=== PATIENT | female | born 1955 | race Caucasian/White ===

== ENCOUNTER → 2016-10-01 | Outpatient (CLI) | payer BC ==
[~2016-10-01] MED LIST: (NONE)300 MCG PO; AMLODIPINE BESYL5 MG PO; ASPIRIN81 M1 PO; ATENOLOL50 MG PO; BIOTEN; BIOTIN2500 MCG; CALCIUM + D 6001 TA1 PO; CELEXA20 MG PO; COLON CLENZ PO; FIBER LAXATIVE0.52 G; FLEXERIL10 MG PO; GENESUPP-5001 CAP PO; K-DUR10 MEQ PO; LASIX PO; LISINOPRIL PO; MULTI-VITAMIN1 TAB; NAPROXEN PO; NEURONTIN PO; SYNTHROID75 MCG PO; VICODIN 5/500 T1 TAB PO; VIT B-12 PO
--- NOTE | ~2016-10-01 | MY11 ---
[facility] A Service of [facility] RADIOLOGY TEXT RESULTS PATIENT: RADHA NOVA LOCATION: [facility] : 51 UNIT #: [id number] AGE: [address]: Viktor Hutton MD SEX: F ORDER DR: [id number] [facility] [address] [place], [place] [address] [id number] O MR#: [id number] Acc #: [id number] NAME: RADHA NOVA : 1955 SEX: F STUDY DATE/TIME: 10/01/2016 8:48 UNIT: [facility] ROOM: STUDY DESCRIPTION: MY Mammogram Screening Dig Felipe Attending Physician: Viktor Hutton M.D. Ordering Physician: Viktor Hutton M.D. Primary Care Physician: Viktor Hutton M.D. MEDICAL IMAGING REPORT This report is preliminary unless electronic signature is present EXAM Bilateral Digital Screening Mammogram with CAD INDICATION Breast cancer screening. 61-year-old asymptomatic female who reports a grandmother with breast cancer. COMPARISON September 26, 2015; June 01, 2014; July 18, 2011 and June 29, 2008. FINDINGS The breast tissue is extremely dense, which may lower the sensitivity of mammography. No suspicious findings are seen. IMPRESSION No mammographic evidence of malignancy. Annual screening mammography and clinical breast exam are recommended. A result letter will be sent to the patient. Patients over the age of 40 are entered into a reminder system with target due date for the next mammogram. BIRADS: 1 Negative Dictated by... Gavino Vance M.D. THIS IS AN ELECTRONICALLY VERIFIED REPORT Gavino Vance M.D. at 10/01/2016 1:07 PM GLENN/erin TD: 10/01/2016 12:56 [facility] of [facility] RADIOLOGY TEXT RESULTS PATIENT: RADHA NOVA LOCATION: [facility] : 51 UNIT #: [id number] AGE: [address]: Viktor Hutton MD SEX: F ORDER DR: JOB #: [id number] MEDICAL IMAGING REPORT COPY
== END | disposition home or self-care (01) ==
LOC: CWCC 08:06
DX: Z12.31 Encounter for screening mammogram for malignant neoplasm of breast (principal); Z80.3 Family history of malignant neoplasm of breast
CPT/HCPCS: G0202

== ENCOUNTER 2017-02-13 12:05 | Emergency (ER) | payer BC ==
[~2017-02-13] VITALS: Ht 162.6 cm; Wt 74.4 kg
--- NOTE | ~2017-02-13 | CR107 ---
[facility] A Service of [facility] RADIOLOGY TEXT RESULTS PATIENT: RADHA NOVA LOCATION: [place] : 51 UNIT #: [id number] AGE: [address]: Gunjan Trivedi SEX: F ORDER DR: [id number] [facility] [address] [place], [place] [address] [id number] E MR#: [id number] Acc #: [id number] NAME: RADAH NOVA. : 1955 SEX: F STUDY DATE/TIME: 02/13/2017 1218 UNIT: [facility] ROOM: STUDY DESCRIPTION: CR Femur 2 Views Rt Attending Physician: Gunjan Trivedi P.A.-C. Ordering Physician: Gunjan Trivedi P.A.-C. Primary Care Physician: Viktor Hutton M.D. MEDICAL IMAGING REPORT This report is preliminary unless electronic signature is present EXAM Right femur 02/13/2017 1218 hours HISTORY Patient fell today with right femur pain, right wrist pain. COMPARISON None. FINDINGS AP and lateral views of the right femur demonstrate no fracture. No hip fracture. Right hemipelvis is normal. IMPRESSION Negative right femur. Dictated by... Azalia Powell M.D. THIS IS AN ELECTRONICALLY VERIFIED REPORT Azalia Powell M.D. at 02/14/2017 8:53 AM Karina TD: 02/13/2017 18:33 JOB #: [id number] MEDICAL IMAGING REPORT Page 1 of 1 COPY
--- NOTE | ~2017-02-13 | CR282 ---
[facility] A Service of [facility] & [facility] RADIOLOGY TEXT RESULTS PATIENT: RADHA NOVA LOCATION: [facility] : 51 UNIT #: [id number] AGE: [address]: Gunjan Trivedi SEX: F ORDER DR: [id number] [place] [id number] [place], [place] [address] [id number] E MR#: [id number] Acc #: [id number] NAME: RADHA NOVA. : 1955 SEX: F STUDY DATE/TIME: 02/13/2017 1217 UNIT: [facility] ROOM: STUDY DESCRIPTION: CR Wrist Min 3 View Rt Attending Physician: Gunjan Trivedi P.A.-C. Ordering Physician: Gunjan Trivedi P.A.-C. Primary Care Physician: Viktor Hutton M.D. MEDICAL IMAGING REPORT This report is preliminary unless electronic signature is present EXAM Right wrist 3 views 02/13/2017 1217 hours HISTORY Patient fell today with right wrist pain and swelling, right femur pain. COMPARISON Right forearm and hand films 02/19/2010 FINDINGS AP, lateral and oblique views demonstrate an acute, comminuted transverse fracture of the distal radius 1.6 cm proximal to the radial styloid. There is linear longitudinal extension into the radiocarpal joint near the articulation with the distal ulna. There is no distal ulna fracture. No carpal bone fracture. IMPRESSION There is an acute closed comminuted fracture of the distal radius 1.6 cm proximal to the radial styloid. There is a linear extension into the radiocarpal joint near the articulation with the distal ulna. There is no ulna fracture. No acute carpal bone fracture. Dictated by... Azalia Powell M.D. THIS IS AN ELECTRONICALLY VERIFIED REPORT Azalia Powell M.D. at 02/14/2017 8:53 AM Karina TD: 02/13/2017 18:31 JOB #: [id number] MEDICAL IMAGING REPORT [facility] A Service of [facility] & [facility] RADIOLOGY TEXT RESULTS PATIENT: RAD[facility] NOVA [id number] 51 UNIT #: [id number] AGE: [address]: Gunjan Trivedi SEX: F ORDER DR: Page 1 of 1 COPY
== END 2017-02-13 13:10 | disposition home or self-care (01) ==
LOC: CED 12:05 → CFTX 12:05
DX: S52.501A Unspecified fracture of the lower end of right radius, initial encounter for closed fracture (principal); I10 Essential (primary) hypertension; E03.9 Hypothyroidism, unspecified; F32.9 Major depressive disorder, single episode, unspecified; X58.XXXA Exposure to other specified factors, initial encounter; Y92.009 Unspecified place in unspecified non-institutional (private) residence as the place of occurrence of the external cause
CPT/HCPCS: 29125; 73110; 73552; 99283